=== PATIENT | male | born 1980 | race Caucasian/White ===

== ENCOUNTER 2019-08-14 10:50 | Emergency (ER) | payer MEDICAID, SELFPAY ==
[2019-08-14 10:52] VITALS: BP 109/67; PULSE 69; PULSE 81; RESP 17; TEMP 37.5; O2SAT 98; BMI 19.1
--- NOTE | 2019-08-14 11:01 | RAD_ITS ---
STUDY: X-RAY - RIGHT HAND, ATTENTION 4 FINGER REASON FOR EXAM: Male, 39 years old. TIP OF 4th FINGER SMASHED IN DOOR TECHNIQUE: 3 view(s) of the finger were obtained. COMPARISON: None. FINDINGS: Normal metacarpal head. Normal metacarpophalangeal joint. Normal proximal phalanx. Normal middle phalanx. Small ossific density adjacent to the volar surface of the third middle phalanx likely represents sequela of old injury or accessory ossicle. Normal distal phalanx. Normal proximal interphalangeal joint. Normal distal interphalangeal joint. There is soft tissue swelling of the distal digit. RAD/Finger(s) Min 2 Views IMPRESSION: Soft tissue swelling without demonstrated fracture. Electronically Signed: Ivan Rosa MD ([place]) at 11:59 EST , Service support ,
--- NOTE | 2019-08-14 12:05 | ED.VIS.GEN ---
History of Present Illness Chief Complaint: Upper Extremity Injury Informant: Patient Onset: Today Narrative: Patient presents with a right fourth finger injury. This happened 2 days ago when it was smashed. He notes collection of blood underneath the fingernail and he tried to relieve it using a heated paperclip but stopped short of actually relieving the pressure. He presents with continued pain. Past Medical History - Allergies and Home Meds Allergies/Adverse Reactions: Allergies No Known Allergies Allergy (Verified 08/14/19 10:51) Primary Care Physician: Care Physician,No Primary [Primary Care Provider] - Smoking Status: Current every day smoker - Family History Maternal Family History: Reports: No pertinent history Review of Systems General: Denies: Chills, Fever, Sweats Eyes: Denies: Visual changes - bilaterally, Diplopia ENT: Denies: Bilateral ear pain, Left ear pain, Right ear pain, Rhinorrhea, Sore throat Cardiovascular: Denies: Chest pain, Palpitations Respiratory: Denies: Dyspnea, Cough, Dyspnea on exertion Gastrointestinal: Denies: Abdominal pain, Nausea, Vomiting, Diarrhea, Melena, Hematochezia Genitourinary: Denies: Dysuria, Hematuria, Frequency Musculoskeletal: Reports: - - Right fourth finger injury see HPI. Denies: Back pain, Extremity Pain Skin: Denies: Rash, Wounds Neurological: Denies: Headache, Weakness, Numbness Physical Exam Vital Signs/Narrative: Vital Signs Temp Pulse Resp BP Pulse Ox 08/14/19 10:52 99.5 F H 81 17 109/67 98 Inital Vital Signs reviewed: Yes General: Well nourished, Well developed, No Acute Distress Head: Normocephalic, Atraumatic Eyes: Perrl, EOMI ENT: Moist mucous membranes, No rhinorrhea Neck: Supple, Nontender Cardiovascular: Regular rate, Regular rhythm, No murmurs Respiratory: No distress, CTA bilaterally, Chest nontender Abdomen: Soft, Nontender, Nondistended, Normal bowel sounds Back: Nontender, Normal Inspection Extremities: No edema, - - Right fourth finger shows a large subungual hematoma that has clotted. Neurovascularly he is intact. The nail appears stable. Skin: Normal color, No rash Neurological: Alert, Oriented x3, Cranial nerves II-XII grossly intact, Normal Strength, Normal Sensation Psychological: Normal affect, Normal Mood Diagnostic/Tx/Re-eval - Medical Decision Making Patient was placed in a finger splint. X-rays were negative for fracture. The splint is for protection of the nail for comfort. I will refer him to Dr. Pratt if he wishes to follow-up for this. ED Disposition - Plan for ED Patient: Disposition: Home or Assisted Living Diagnosis: Subungual hematoma of finger Instructions: Subungual Hematoma Referrals: Josiah Pratt MD [STAFF PHYSICIAN] - 3-5 Days
== END 2019-08-14 12:27 | disposition home or self-care (01) ==
PROVIDERS: Emergency Provider Emergency Medicine
DX: S60.141A Contusion of right ring finger with damage to nail, initial encounter (principal); W23.0XXA Caught, crushed, jammed, or pinched between moving objects, initial encounter; Y93.9 Activity, unspecified; Y92.9 Unspecified place or not applicable; Y99.9 Unspecified external cause status; Z79.899 Other long term (current) drug therapy
CPT/HCPCS: 73140; 99283